=== PATIENT | male | born 1990 | race Caucasian/White ===

== ENCOUNTER 2017-08-18 14:56 | Inpatient (IN) | payer OTHER ==
[~2017-08-18] VITALS: Ht 180.3 cm; Wt 74.3 kg
[~2017-08-18 14:56] MED LIST: LORTAB 5-325 M1 EACH PO; MIRTAZAPINE15 MG PO; MOTRIN600 MG PO; MOTRIN800 MG PO; TYLENOL WITH C1 EACH PO; VENTOLIN HFA18 GM IH; ZOFRAN ODT8 MG PO
[2017-08-18 15:47] LABS: HEMATOCRIT 42.7 % (38.0-50.0); MCH 28.6 PG (29.0-34.0); MCHC 32.8 G/DL (30.0-36.0); MCV 87.3 FL (86-99); PLATELET COUNT 325 K/uL (156-360); RBC DIS.WIDTH-CV 12.9 % (11.8-14.6); RBC DIS.WIDTH-SD 41.3 % (39-53); RED BLOOD COUNT 4.89 M/uL (4.00-5.50)
[2017-08-18 15:59] LABS: CHLORIDE 104 mEq/L (99-109); POTASSIUM 3.9 mEq/L (3.7-5.4); SODIUM 139 mEq/L (136-147)
[2017-08-18 16:01] LABS: GLUCOSE 103 mg/dL (70-99)
[2017-08-18 16:03] LABS: ANION GAP 9 MEQ/L (2-14)
[2017-08-18 16:04] LABS: SERUM ETHYL ALCOHOL < 10 mg/dL
[2017-08-18 16:05] LABS: GFR ESTIMATE (CALCULATED) > 59 mL/min/
[2017-08-18 16:06] LABS: UREA NITROGEN (BUN) 17 mg/dL (9-23)
[2017-08-18 16:41] LABS: SALICYLATE < 5.0 MG/DL (15-30)
[2017-08-18 16:41] LABS: ADD MIUA? YES; BILIRUBIN NEGATIVE; BLOOD SMALL; COLOR YELLOW ((YELLOW)); GLUCOSE (STRIP) NEGATIVE; KETONES NEGATIVE; LEUKOCYTES NEGATIVE; NITRITE NEGATIVE; PROTEIN (STRIP) NEGATIVE; SPECIFIC GRAVITY 1.021 (1.000-1.030); UROBILINOGEN 0.2 MG/DL (0.2-1.0)
[2017-08-18 16:45] LABS: BACTERIA NONE SEEN /HPF; EPITHELIAL CELLS NONE SEEN /HPF; HYALINE CASTS 0-5 /LPF; MUCUS TRACE /LPF; RED BLOOD CELLS 0-5 /HPF (0-5); WHITE BLOOD CELLS 0-5 /HPF (0-5)
[2017-08-18 16:56] LABS: ADD MEDTOX COMMENT Y; AMPHETAMINE NEGATIVE (500 ng/mL); BARBITURATES NEGATIVE (200 ng/mL); BENZODIAZEPINES NEGATIVE (150 ng/mL); COCAINE PRESUMPTIVE POSITIVE (150 ng/mL); INTERNAL CONTROLS VALID? YES; METHADONE NEGATIVE (200 ng/mL); METHAMPHETAMINE NEGATIVE (500 ng/mL); OPIATES (MORPHINE) PRESUMPTIVE POSITIVE (100 ng/mL); OXYCODONE NEGATIVE (100 ng/mL); PHENCYCLIDINE NEGATIVE (25 ng/mL); PROPOXYPHENE NEGATIVE (300 ng/mL); THC CANNABINOIDS NEGATIVE (50 ng/mL); TRICYCLIC ANTIDEPRESSANTS NEGATIVE (300 ng/mL)
[2017-08-18 17:19] LABS: OPIATES QUANTITATIVE VALUE 0 NG/ML
[2017-08-18 19:00] VITALS: BP 137/67
[2017-08-18 19:09] VITALS: BP 137/67
[2017-08-18 21:58] VITALS: BP 132/70
[2017-08-19 07:28] VITALS: BP 119/63
[2017-08-19 15:26] VITALS: BP 99/56
[2017-08-19 17:50] VITALS: BP 125/60
[2017-08-19 20:23] VITALS: BP 135/65
[2017-08-20 06:48] VITALS: BP 104/59
[2017-08-21 07:39] VITALS: BP 97/56
[2017-08-21 14:51] VITALS: BP 124/63
[2017-08-22 07:46] VITALS: BP 137/63
[2017-08-22] MEDS ORDERED: BUPROPION HCL100 M1 PO (12:35)
== END 2017-08-22 14:10 | disposition home or self-care (01) | DRG 918 ==
LOC: EME 14:56 → EDOF 17:33 → 1WEST 17:33 → ENRESERV 18:30 → 1WEST 18:53
PROVIDERS: Physician Assistant
DX: T40.1X1A Poisoning by heroin, accidental (unintentional), initial encounter (principal); F11.20 Opioid dependence, uncomplicated; F32.9 Major depressive disorder, single episode, unspecified; F14.20 Cocaine dependence, uncomplicated; F17.200 Nicotine dependence, unspecified, uncomplicated; Z87.442 Personal history of urinary calculi
CPT/HCPCS: 80048; 81003; 84999; 85027; 90839; 97150 GO; 99281; 99285; G0480; Q0177

== ENCOUNTER 2017-08-24 04:57 | Emergency (ER) | payer OTHER ==
[~2017-08-24] VITALS: Ht 180.3 cm; Wt 73.0 kg
[~2017-08-24 04:57] MED LIST changes: +BUPROPION HCL100 M1 PO
[2017-08-24 06:09] LABS: HEMATOCRIT 43.3 % (38.0-50.0); MCH 28.8 PG (29.0-34.0); MCHC 33.3 G/DL (30.0-36.0); MCV 86.6 FL (86-99); MEAN PLAT.VOLUME 9.3 uM^3 (9.0-12.4); PLATELET COUNT 346 K/uL (156-360); RBC DIS.WIDTH-CV 13.1 % (11.8-14.6); RBC DIS.WIDTH-SD 41.3 % (39-53); WHITE BLOOD COUNT 11.4 K/uL (4.1-10.2)
[2017-08-24 06:20] LABS: CHLORIDE 107 mEq/L (99-109); POTASSIUM 3.7 mEq/L (3.7-5.4); SODIUM 142 mEq/L (136-147)
[2017-08-24 06:22] LABS: GLUCOSE 152 mg/dL (70-99)
[2017-08-24 06:22] LABS: AMPHETAMINE NEGATIVE (500 ng/mL); BARBITURATES NEGATIVE (200 ng/mL); BENZODIAZEPINES PRESUMPTIVE POSITIVE (150 ng/mL); COCAINE PRESUMPTIVE POSITIVE (150 ng/mL); METHADONE NEGATIVE (200 ng/mL); METHAMPHETAMINE NEGATIVE (500 ng/mL); OPIATES (MORPHINE) NEGATIVE (100 ng/mL); OXYCODONE NEGATIVE (100 ng/mL); PHENCYCLIDINE PRESUMPTIVE POSITIVE (25 ng/mL); PROPOXYPHENE NEGATIVE (300 ng/mL); THC CANNABINOIDS PRESUMPTIVE POSITIVE (50 ng/mL); TRICYCLIC ANTIDEPRESSANTS NEGATIVE (300 ng/mL)
[2017-08-24 06:23] LABS: ANION GAP 11 MEQ/L (2-14)
[2017-08-24 06:23] LABS: INTERNAL CONTROLS VALID? YES
[2017-08-24 06:24] LABS: ADD MEDTOX COMMENT Y
[2017-08-24 06:25] LABS: SERUM ETHYL ALCOHOL < 10 mg/dL
[2017-08-24 06:26] LABS: GFR ESTIMATE (CALCULATED) > 59 mL/min/
[2017-08-24 06:27] LABS: UREA NITROGEN (BUN) 14 mg/dL (9-23)
[2017-08-24 06:58] LABS: BENZODIAZEPINES, URINE SCREEN POSITIVE (200 ng/mL)
[2017-08-24 13:58] VITALS: BP 128/80
== END 2017-08-24 13:20 | disposition home or self-care (01) ==
LOC: EME 04:57
PROVIDERS: Emergency Medicine
DX: F11.20 Opioid dependence, uncomplicated (principal); F14.20 Cocaine dependence, uncomplicated; F32.9 Major depressive disorder, single episode, unspecified; Z87.442 Personal history of urinary calculi; F17.200 Nicotine dependence, unspecified, uncomplicated
CPT/HCPCS: 80048; 84999; 85027; 90839; 99281; 99285; G0480